=== PATIENT | female | born 1935 | race Caucasian/White ===

== ENCOUNTER 2019-01-23 17:32 | Inpatient (IN) ==
[2019-01-23] MEDS ORDERED: ONDANSETRON 4 MG/2 ML VIAL IV PRN (20:22)
[2019-01-23] MEDS ORDERED: MAGNESIUM SULF RIDER 2 GM in PREMIX 1 EACH IV ONE (20:34)
[2019-01-23] MEDS ORDERED: SODIUM CHLORIDE 0.9% 1,000 ML IV SCH (21:00)
[2019-01-23] MEDS: predniSONE 20 MG TABLET PO SCH (21:08)
[2019-01-23] MEDS: CARBIDOPA/LEVODOPA CR 25-100 MG TABLET PO SCH (21:08)
[2019-01-24 00:59] LABS: Basophils # 0.1 10*3/uL (0.0-0.2); Basophils % 0.5 % (0.0-0.8); Eosinophils % 0.2 % (0.00-10.9); Hematocrit 36.4 VOL% (35.7-47.0); Hemoglobin 12.5 GM/DL (12.0-16.0); Immature Granulocytes % 0.4 %; Immature Granulocytes Absolute 0.04 #; Lymphocytes # 0.4 10*3/uL (1.4-4.0); Lymphocytes % 3.3 % (21.3-54.2); Mean Corpuscular HGB Conc 34.3 GM/DL (32-36); Mean Corpuscular Volume 94.5 FL (87-102); Mean Platelet Volume 10.8 FL (9.6-12.0); Monocytes % 5.3 % (1.7-12.7); Neutrophils % 90.3 % (38.7-73.9); Platelet Count 125 T/CUMM (130-400); Red Blood Count 3.85 MC/CUMM (3.8-5.5); Red Cell Distribution Width 19.3 % (9.3-17.3); White Blood Count 10.7 T/CUMM (4-12)
[2019-01-24 01:19] LABS: Calcium 8.6 MG/DL (8.5-10.1); Osmolality,Calculated 271.2 MOS/KG (273-304)
[2019-01-24 02:13] LABS: Eosinophils 1 % (0-10); Lymphocytes 7 % (20-55); Segmented Neutrophils 88 % (50-85); Total Cells Counted 100
[2019-01-24 02:14] LABS: Anisocytosis Slight; Microcytosis Slight; Target Cells Slight
[2019-01-24 02:15] LABS: Polychromasia Slight; Spherocytes Slight
[2019-01-24 02:16] LABS: Platelet Estimate Adequate
[2019-01-24] MEDS: ENOXAPARIN 30 MG/0.3 ML SYRINGE SUBCUT SCH ×2 (02:50→21:51)
[2019-01-24] MEDS: LEVOTHYROXINE 50 MCG TABLET PO SCH (06:23)
[2019-01-24] MEDS: CARBIDOPA/LEVODOPA CR 25-100 MG TABLET PO SCH ×3 (08:30→21:51)
[2019-01-24] MEDS: predniSONE 20 MG TABLET PO SCH ×2 (08:30→21:51)
[2019-01-24] MEDS: PANTOPRAZOLE 40 MG TABLET PO SCH (08:30)
[2019-01-24] MEDS: ASPIRIN 325 MG TABLET PO SCH (08:30)
[2019-01-25 05:10] LABS: Albumin 1.8 G/DL (3.4-5.0); Bilirubin,Total 0.5 MG/DL (0.2-1.0); Calcium 7.5 MG/DL (8.5-10.1); Osmolality,Calculated 276.8 MOS/KG (273-304); Total Protein 4.3 G/DL (6.4-8.3)
[2019-01-25] MEDS: LEVOTHYROXINE 50 MCG TABLET PO SCH (06:28)
[2019-01-25] MEDS: predniSONE 20 MG TABLET PO SCH ×2 (09:45→20:56)
[2019-01-25] MEDS: ASPIRIN 325 MG TABLET PO SCH (09:45)
[2019-01-25] MEDS: CARBIDOPA/LEVODOPA CR 25-100 MG TABLET PO SCH ×3 (09:45→20:56)
[2019-01-25] MEDS: PANTOPRAZOLE 40 MG TABLET PO SCH (09:45)
[2019-01-25] MEDS: FOLIC ACID 1 MG TABLET PO SCH (15:31)
[2019-01-25] MEDS: METOPROLOL SUCCINATE XL 25 MG TABLET PO SCH (15:31)
[2019-01-25] MEDS: ENOXAPARIN 30 MG/0.3 ML SYRINGE SUBCUT SCH (20:56)
[2019-01-26 04:59] LABS: Basophils % 0.1 % (0.0-0.8); Hematocrit 31.3 VOL% (35.7-47.0); Hemoglobin 10.4 GM/DL (12.0-16.0); Immature Granulocytes % 0.7 %; Immature Granulocytes Absolute 0.06 #; Lymphocytes # 0.4 10*3/uL (1.4-4.0); Lymphocytes % 5.4 % (21.3-54.2); Mean Corpuscular HGB Conc 33.2 GM/DL (32-36); Mean Corpuscular Volume 95.4 FL (87-102); Mean Platelet Volume 11.6 FL (9.6-12.0); Monocytes % 1.4 % (1.7-12.7); Neutrophils % 92.4 % (38.7-73.9); Platelet Count 128 T/CUMM (130-400); Red Blood Count 3.28 MC/CUMM (3.8-5.5); Red Cell Distribution Width 19.6 % (9.3-17.3)
[2019-01-26 05:20] LABS: Band Neutrophils 1 % (0-10); Lymphocytes 4 % (20-55); Segmented Neutrophils 94 % (50-85); Total Cells Counted 100
[2019-01-26 05:21] LABS: Hypochromasia 1+; Microcytosis Slight; Ovalocytes Slight; Platelet Estimate Adequate
[2019-01-26 05:38] LABS: Calcium 7.9 MG/DL (8.5-10.1); Osmolality,Calculated 276.7 MOS/KG (273-304)
[2019-01-26] MEDS: LEVOTHYROXINE 50 MCG TABLET PO SCH (06:01)
[2019-01-26] MEDS: MULTIVITAMIN LIQUID (CENTRUM) 60 ML BOTTLE PO SCH (08:48)
[2019-01-26] MEDS: METOPROLOL SUCCINATE XL 25 MG TABLET PO SCH (08:48)
[2019-01-26] MEDS: FOLIC ACID 1 MG TABLET PO SCH (08:48)
[2019-01-26] MEDS: predniSONE 20 MG TABLET PO SCH ×2 (08:48→20:40)
[2019-01-26] MEDS: CARBIDOPA/LEVODOPA CR 25-100 MG TABLET PO SCH ×3 (08:48→20:40)
[2019-01-26] MEDS: PANTOPRAZOLE 40 MG TABLET PO SCH (08:48)
[2019-01-26] MEDS: ASPIRIN 325 MG TABLET PO SCH (08:48)
[2019-01-26] MEDS: ENOXAPARIN 30 MG/0.3 ML SYRINGE SUBCUT SCH (20:40)
[2019-01-27 05:16] LABS: Hematocrit 27.8 VOL% (35.7-47.0); Hemoglobin 9.7 GM/DL (12.0-16.0); Immature Granulocytes % 0.6 %; Immature Granulocytes Absolute 0.04 #; Lymphocytes # 0.4 10*3/uL (1.4-4.0); Lymphocytes % 6.1 % (21.3-54.2); Mean Corpuscular HGB Conc 34.9 GM/DL (32-36); Mean Platelet Volume 11.9 FL (9.6-12.0); Monocytes % 1.9 % (1.7-12.7); Neutrophils % 91.4 % (38.7-73.9); Platelet Count 125 T/CUMM (130-400); Red Blood Count 2.99 MC/CUMM (3.8-5.5); White Blood Count 6.2 T/CUMM (4-12)
[2019-01-27 05:31] LABS: Calcium 7.7 MG/DL (8.5-10.1); Osmolality,Calculated 278.8 MOS/KG (273-304)
[2019-01-27 05:36] LABS: Hypochromasia 1+; Lymphocytes 6 % (20-55); Platelet Estimate Normal; Segmented Neutrophils 93 % (50-85); Total Cells Counted 100
[2019-01-27 05:37] LABS: Microcytosis Slight
[2019-01-27] MEDS: LEVOTHYROXINE 50 MCG TABLET PO SCH (06:30)
[2019-01-27] MEDS ORDERED: ERGOCALCIFEROL 50,000 UNIT CAPSULE PO SCH (09:00)
[2019-01-27] MEDS: ASPIRIN 325 MG TABLET PO SCH (09:23)
[2019-01-27] MEDS: METOPROLOL SUCCINATE XL 25 MG TABLET PO SCH (09:23)
[2019-01-27] MEDS: CARBIDOPA/LEVODOPA CR 25-100 MG TABLET PO SCH ×3 (09:23→20:28)
[2019-01-27] MEDS: FOLIC ACID 1 MG TABLET PO SCH (09:23)
[2019-01-27] MEDS ORDERED: guaiFENesin/DM ER 600-30 MG TABLET PO PRN (09:23)
[2019-01-27] MEDS: PANTOPRAZOLE 40 MG TABLET PO SCH (09:24)
[2019-01-27] MEDS: predniSONE 20 MG TABLET PO SCH ×2 (09:24→20:28)
[2019-01-27] MEDS: MULTIVITAMIN LIQUID (CENTRUM) 60 ML BOTTLE PO SCH (09:28)
[2019-01-27] MEDS ORDERED: TUBERCULIN SKIN TEST 0.1 ML SYRINGE INTRADERM ONE (18:00)
[2019-01-27] MEDS: ENOXAPARIN 30 MG/0.3 ML SYRINGE SUBCUT SCH (20:27)
[2019-01-27] MEDS: levETIRAcetam 500 MG TABLET PO SCH (20:28)
[2019-01-28 05:21] LABS: Basophils % 0.1 % (0.0-0.8); Hematocrit 29.6 VOL% (35.7-47.0); Hemoglobin 10.1 GM/DL (12.0-16.0); Immature Granulocytes % 1.5 %; Immature Granulocytes Absolute 0.14 #; Lymphocytes # 0.4 10*3/uL (1.4-4.0); Lymphocytes % 3.9 % (21.3-54.2); Mean Corpuscular HGB Conc 34.1 GM/DL (32-36); Mean Corpuscular Volume 92.5 FL (87-102); Mean Platelet Volume 11.8 FL (9.6-12.0); Monocytes % 3.6 % (1.7-12.7); Neutrophils % 90.9 % (38.7-73.9); Platelet Count 120 T/CUMM (130-400); Red Cell Distribution Width 19.1 % (9.3-17.3); White Blood Count 9.2 T/CUMM (4-12)
[2019-01-28 05:45] LABS: Band Neutrophils 1 % (0-10); Hypochromasia 1+; Lymphocytes 5 % (20-55); Microcytosis Slight; Platelet Estimate Normal; Segmented Neutrophils 94 % (50-85); Total Cells Counted 100
[2019-01-28 05:55] LABS: Osmolality,Calculated 281.7 MOS/KG (273-304)
[2019-01-28] MEDS: LEVOTHYROXINE 50 MCG TABLET PO SCH (06:28)
[2019-01-28] MEDS: predniSONE 20 MG TABLET PO SCH (08:16)
[2019-01-28] MEDS: CARBIDOPA/LEVODOPA CR 25-100 MG TABLET PO SCH (08:16)
[2019-01-28] MEDS: FOLIC ACID 1 MG TABLET PO SCH (08:16)
[2019-01-28] MEDS: PANTOPRAZOLE 40 MG TABLET PO SCH (08:17)
[2019-01-28] MEDS: ASPIRIN 325 MG TABLET PO SCH (08:17)
[2019-01-28] MEDS: METOPROLOL SUCCINATE XL 25 MG TABLET PO SCH (08:17)
[2019-01-28] MEDS: levETIRAcetam 500 MG TABLET PO SCH (08:20)
[2019-01-28] MEDS: MULTIVITAMIN LIQUID (CENTRUM) 60 ML BOTTLE PO SCH (08:21)
[2019-01-28 12:33] VITALS: BP 133/80
[2019-01-29] MEDS ORDERED: ASPIRIN EC 325 MG TABLET PO SCH (09:00)
== END 2019-01-28 14:24 | disposition swing bed (61) | DRG 101 ==
LOC: N.TELES → SUATTDRO 20:32
PROVIDERS: ADMIT Internal Medicine; ATTEND Internal Medicine Nephrology